=== PATIENT | female | born 1975 | race Caucasian/White ===

== ENCOUNTER 2020-12-03 15:58 | Emergency (ER) | payer MEDICARE, MEDICAID ==
[~2020-12-03] VITALS: Ht 167.6 cm; Wt 108.0 kg
[2020-12-03 17:52] LABS: BASOPHILS % (AUTO) 1 % (0-1); EOSINOPHILS % (AUTO) 3 % (1-7); LYMPHOCYTES % (AUTO) 20 % (22-44); MEAN CORPUSCULAR HEMOGLOBIN 33.7 pg (27.0-34.8); MEAN CORPUSCULAR HGB CONC 33.6 g/dL (32.4-35.8); MEAN PLATELET VOLUME 9.4 fL (7.4-10.4); MONOCYTES % (AUTO) 8 % (2-9); NEUTROPHILS % (AUTO) 69 % (42-75); PLATELET COUNT 248 x10^3/uL (130-400); RED BLOOD COUNT 4.27 x10^6/uL (3.82-5.3); RED CELL DISTRIBUTION WIDTH 14.9 % (9.6-15.2)
[2020-12-03 18:05] LABS: CALCIUM 8.8 mg/dL (8.5-10.1); CHLORIDE 111 mmol/L (98-107)
[2020-12-03 18:14] LABS: ALANINE AMINOTRANSFERASE 44 U/L (12-78); ALBUMIN 3.4 g/dL (3.4-5.0); ALKALINE PHOSPHATASE 119 U/L (45-117); ANION GAP 5 mmol/L (5-15); BILIRUBIN,TOTAL 0.5 mg/dL (0.2-1.0); CREATININE 0.87 mg/dL (0.55-1.02); TOTAL PROTEIN 7.2 g/dL (6.4-8.2); TROPONIN I < 0.015 ng/mL (0.000-0.045)
[2020-12-03] MEDS ORDERED: POTASSIUM CHLORIDE 20 MEQ TAB.ER.PRT PO ONE (19:30)
[2020-12-03] MEDS ORDERED: MECLIZINE CHEWABLE 25 MG TAB PO ONE (19:30)
[2020-12-03] MEDS ORDERED: MECLIZINE CHEWABLE 25 MG TAB ONE (19:58)
[2020-12-03] MEDS ORDERED: POTASSIUM CHLORIDE 20 MEQ TAB.ER.PRT ONE (19:58)
[2020-12-03 20:06] VITALS: BP 106/53
--- NOTE | 2020-12-03 20:15 | NUR ---
ERP WAS IN FOR RECHECK AND CT RESULTS RV'WD WITH PT. PT MEDICATED PER ORDERS. PT EMOTIONAL UPON DISCHARGE, STATES SHE HAS NO SUPPORT CURRENTLY. DENIES SI. D/C INSTRUCTIONS, MEDS & F/U APPT RV'WD WITH PT. RX GIVEN X1. EMPHASIZED IMPORTANCE OF F/U WITH PCP. CT RESULTS PROVIDED TO PT. PT AMBULATED OUT OF ED WITHOUT DIFFICULTY.
== END 2020-12-03 20:15 | disposition home or self-care (01) ==
LOC: ED 20:09
DX: R42 Dizziness and giddiness (principal); E87.6 Hypokalemia; G93.0 Cerebral cysts; J44.9 Chronic obstructive pulmonary disease, unspecified; R94.31 Abnormal electrocardiogram [ECG] [EKG]
CPT/HCPCS: 36415; 70450; 80053; 84484; 84703; 85025; 93005; 99285